=== PATIENT | female | born 1995 | race American Indian/Alaskan Native ===

== ENCOUNTER 2017-04-22 21:47 | Emergency (ER) | payer SELFPAY ==
[2017-04-23 04:53] VITALS: BP 113/70
[2017-04-23] MEDS ORDERED: BOOSTRIX IM ONE (05:26)
--- NOTE | 2017-04-23 05:31 | Emergency Department Report ---
ED Animal Bite HPI - General Chief Complaint: Animal Bite Stated Complaint: DOG BITE Time Seen by Provider: 04/23/17 05:24 Source: patient Mode of arrival: Ambulatory Limitations: No Limitations - History of Present Illness Initial Comments: This is a 22-year-old female well-nourished with nontoxic or ill in appearance that presents with 0.5 cm laceration to the right posterior forearm status post dog bite. Patient stated the dog is a family dog. They stated the dog is a pitbull. Patient was playing with the dog while the dog bit her right posterior forearm. It is complaining of pain 6 out of 10 described as throbbing and burning. Patient denies any fever, chills, nausea vomiting, chest pain, shortness of breath, abdominal pain, bleeding, pus, drainage, numbness or tingling to his extremity. Patient stated dog is up-to-date on vaccines. Patient denies an well-controlled notification. SHe stated does not know her last tetanus shot. Patient also stated she is 7 weeks . Denies any past medical history or allergies. MD Complaint: animal bite (dog) -: days(s) (1) Right: Forearm (posterior) Animal: dog Animal Control Notified: No Description: household pet Mechanism: bite Pain Description: burning Severity scale (0 -10): 5 Associated Symptoms: none. denies: erythema, discharge from wound, bleeding, fever, chills, rash, loss of consciousness, cough, headache, diaphoresis, shortness of breath - Related Data Patient Tetanus UTD: No Previous Rx's Medication Instructions Recorded Last Taken Type Amoxicillin/K Clav Tab [Augmentin 1 tab PO BID #20 tab 04/23/17 Unknown Rx 875 mg] Allergies Allergy/AdvReac Type Severity Reaction Status Date / Time No Known Allergies Allergy Unverified 04/22/17 22:42 ED Review of Systems ROS: Stated complaint: DOG BITE Other details as noted in HPI Constitutional: denies: chills, fever Eyes: denies: eye pain, eye discharge, vision change ENT: denies: ear pain, throat pain Respiratory: denies: cough, shortness of breath, wheezing Cardiovascular: denies: chest pain, palpitations Endocrine: no symptoms reported Gastrointestinal: denies: abdominal pain, nausea, diarrhea Genitourinary: denies: urgency, dysuria, discharge Musculoskeletal: denies: back pain, joint swelling, arthralgia Skin: denies: rash, lesions Neurological: denies: headache, weakness, paresthesias Psychiatric: denies: anxiety, depression Hematological/Lymphatic: denies: easy bleeding, easy bruising ED Past Medical Hx - Past Medical History Previous Medical History?: No - Surgical History Past Surgical History?: No - Social History Smoking Status: Former Smoker Substance Use Type: None - Medications Home Medications: Home Medications Medication Instructions Recorded Confirmed Last Taken Type Amoxicillin/K Clav Tab [Augmentin 1 tab PO BID #20 tab 04/23/17 Unknown Rx 875 mg] ED Physical Exam - General Limitations: No Limitations General appearance: alert, in no apparent distress - Head Head exam: Present: atraumatic, normocephalic - Eye Eye exam: Present: normal appearance, PERRL, EOMI Pupils: Present: normal accommodation - ENT ENT exam: Present: normal exam, normal orophraynx, mucous membranes moist, TM's normal bilaterally, normal external ear exam - Neck Neck exam: Present: normal inspection, full ROM. Absent: tenderness, meningismus, lymphadenopathy, thyromegaly - Respiratory Respiratory exam: Present: normal lung sounds bilaterally. Absent: respiratory distress, wheezes, rales, rhonchi, stridor, chest wall tenderness, accessory muscle use, decreased breath sounds, prolonged expiratory - Cardiovascular Cardiovascular Exam: Present: regular rate, normal rhythm, normal heart sounds. Absent: bradycardia, tachycardia, irregular rhythm, systolic murmur, diastolic murmur, rubs, gallop - GI/Abdominal GI/Abdominal exam: Present: soft, normal bowel sounds. Absent: distended, tenderness, guarding, rebound, rigid, diminished bowel sounds - Rectal Rectal exam: Present: deferred - Extremities Exam Extremities exam: Present: normal inspection, normal capillary refill. Absent: full ROM, tenderness, pedal edema, joint swelling, calf tenderness - Expanded Upper Extremity Exam Right General: Present: normal inspection Shoulder Exam: Present: normal inspection, full ROM. Absent: tenderness, swelling, abrasion, laceration, ecchymosis, tenderness over AC joint Upper Arm exam: Present: normal inspection, full ROM. Absent: tenderness, swelling, abrasion, laceration, ecchymosis, deformity, crepidus, dislocation, erythema Elbow exam: Present: normal inspection, full ROM. Absent: tenderness, swelling , abrasion, laceration, ecchymosis, deformity, crepidus, dislocation, erythema, effusion, pain w/ pronation/supination, tenderness over radial head Forearm Wrist exam: Present: normal inspection, full ROM, laceration (0.5 cm to posterior forearm), erythema. Absent: tenderness, swelling, abrasion, ecchymosis, deformity, crepidus, dislocation, tenderness over anatomical snuff box, pain with axial thumb loading Hand Wrist exam: Present: normal inspection, full ROM. Absent: tenderness, swelling, abrasion, laceration, ecchymosis, deformity, crepidus, dislocation Neuro motor exam: Present: wrist extension intact, fingers 2-5 abduction intact Neurosensory exam: Present: 2-point discrimination, radial nerve intact, ulnar nerve intact, median nerve intact Vascular: Present: vascular compromise, normal capillary refill - Back Exam Back exam: Present: normal inspection, full ROM. Absent: tenderness, CVA tenderness (R), CVA tenderness (L), muscle spasm, paraspinal tenderness, vertebral tenderness, rash noted - Neurological Exam Neurological exam: Present: alert, oriented X3, CN II-XII intact, normal gait - Psychiatric Psychiatric exam: Present: normal affect, normal mood - Skin Skin exam: Present: warm, dry, intact, normal color. Absent: rash - Other Other exam information: No psu. No drainage noted. ED Course Vital Signs 04/22/17 04/23/17 22:43 04:52 Temperature 98.1 F 98.2 F Pulse Rate 89 74 Respiratory 18 16 Rate Blood Pressure 139/82 Blood Pressure 113/70 [Right] O2 Sat by Pulse 100 100 Oximetry - Reevaluation(s) Reevaluation #1: 04/23/17 05:36 Patient was instructed to observe the dog for 10 days for any abnormal behavior and if present report back to the ER for a possibility of a rabies vaccine series. - Consultations Consultation #1: 04/23/17 05:[address] Matta regarding tetanus vaccine for 7 week female. As per [employer]CO[employer] journal article named Committee Opinion from April 2013 regarding Update on Immunization and : Tetanus, Diphtheria, and Pertusis Vaccination stated it is recommended and safe for the first trimister female to receive Tetanus booster. - Laceration /Wound Repair Right Arm Wound Location: upper extremity (posterior forearm) Wound Length (cm): 0 (0.5 cm) Wound's Depth, Shape: superficial Wound Explored: clean Irrigated w/ Saline (ccs): 30 Betadine Prep?: Yes Wound Debrided: minimal Wound Repaired With: Dermabond Sterile Dressing Applied?: Yes Progress: Under sterile field, I used Betadine to prep the wound area. I used 30 mL of normal saline to flush out the wound. I then used a sterile 4 x 4 to dry the area. A Dermabond was used for a 0.5 cm laceration. A sterile dressing has been applied to the area with tape. Patient did well. No signs of distress. No complications noted. Critical care attestation.: If time is entered above; I have spent that time in minutes in the direct care of this critically ill patient, excluding procedure time. ED Disposition Clinical Impression: Laceration Dog bite Qualifiers: Encounter type: initial encounter Qualified Code(s): W54.0XXA - Bitten by dog, initial encounter Disposition: DISCHARGED TO HOME OR SELFCARE Is pt being admited?: No Does the pt Need Aspirin: No Condition: Stable Instructions: Animal Bite (ED), Laceration (ED), Acute Wound Care (ED), Skin Adhesive Care (ED) Additional Instructions: Observe the dog for 10 days for any abnormal behavior and if present report back to the ER for a possibility of a rabies vaccine series. Take full course of antibiotics as prescribed. Keep area clean and dry for 24 hours. Prescriptions: Amoxicillin/K Clav Tab [Augmentin 875 mg] 1 tab PO BID #20 tab Referrals: PRIMARY MD RADHA [Primary Care Provider] - 3-5 Days [facility] [Outside] - 3-5 Days [facility] [Outside] - 3-5 Days MARY GAN MD [Staff Physician] - 3-5 Days Forms: Work/School Release Form(ED)
== END 2017-04-23 06:18 | disposition home or self-care (01) ==
LOC: ED 21:47
DX: S51.811A Laceration without foreign body of right forearm, initial encounter (principal); Z87.891 Personal history of nicotine dependence; W54.0XXA Bitten by dog, initial encounter; Y93.9 Activity, unspecified; Y92.9 Unspecified place or not applicable; Y99.9 Unspecified external cause status
CPT/HCPCS: 90471; 90715; 99282